=== PATIENT | female | born 1970 | race Caucasian/White ===

== ENCOUNTER 2022-02-04 16:29 | Emergency (ER) | payer MEDICAID, SELFPAY ==
[2022-02-04 16:31] VITALS: BP 135/85; PULSE 70; RESP 16; TEMP 36.6; O2SAT 100; BMI 34.3
--- NOTE | 2022-02-04 16:55 | EKG12_ITS ---
Test Reason : NUMBNESS Blood Pressure : / mmHG Vent. Rate : 072 BPM Atrial Rate : 072 BPM P-R Int : 110 ms QRS Dur : 076 ms QT Int : 402 ms P-R-T Axes : 053 042 056 degrees QTc Int : 440 ms Sinus rhythm with short RI Low voltage QRS Borderline ECG Confirmed by KATIANA CROCKER, ALLA ([id number]), pictures editor SANJEEV MEDINA ([id number]) on 02/06/2022 11:04:29 AM Referred By: PL Confirmed By:ALLA SAAB MD
--- NOTE | 2022-02-04 16:55 | CT_ITS ---
INDICATION: numbness EXAMINATION: CT BRAIN - CT Head or Brain W/O Contrast Injection TECHNIQUE: Multiple axial images were obtained of the head without intravenous contrast. A radiation dose optimization technique was used for this scan. IV Contrast dosage and agent: None. COMPARISON: None. FINDINGS: BRAIN PARENCHYMA: No intra- or extra-axial hemorrhage. No intracranial mass or mass effect. Christianson/white matter differentiation is maintained and there is no blurring of the basal ganglia. There is no hyperdense vessel. Posterior fossa structures are unremarkable. CSF SPACES: Appropriate for age. No hydrocephalus. Basal cisterns are patent. CALVARIUM, SKULL BASE, PARANASAL SINUSES AND MASTOID AIR CELLS: Clear. No discrete lytic or blastic abnormalities. ORBITS: Both globes, extraocular muscles, optic nerves and retrobulbar fat appear unremarkable. ASPECTS Score for Acute Strokes: 10 CT/Brain/Head without Contrast IMPRESSION: Negative Brain CT without contrast. Electronically Signed: Avila Morfin DO at 17:35 EDT ,
--- NOTE | 2022-02-04 16:57 | EDS_ITS ---
HPI History of Present Illness Chief Complaint: Numb/Ting Informant: patient Narrative Narrative: Patient presents with a couple symptoms. Patient has had 2 episodes of a numbness tingling paresthesias of her left arm. The first occurred on January 22 after she had had her arm sitting up high in the edge of the high chair for a while. She lowered her arm and got somewhere between 5 and 8 seconds of tingling into her hand. Completely resolved. There were no other symptoms. Last night she had an episode of tingling that was mostly in the tip of her index and long finger. That got better after a few minutes. She also has had a little bit of tingling in her dorsal forearm on the left arm. No actual numbness. No weakness in any time. She also had an episode last night of palpitations. She felt like her heart was racing. It lasted at least 5 or 6 seconds. It went away. It has not recurred. Nothing his specifically made this better or worse other than positional. She has no swelling. She thinks that the redness of her left palm might be more red than it normally is. She reports a history of palmar erythema but thinks they might be more erythematous than normal. No travel surgery immobilization personal or family history of DVT or PE. Her last trip was 7 years ago. She has no injury. [facility] Medical History Palmar erythema Palmar erythema Medical History no medical history Home Medications oxycodone-acetaminophen 5 mg-325 mg tablet 1 - 2 tab PO Q4H PRN PRN Pain ##30 05/20/17 [Rx Last Taken Unknown] sulfamethoxazole 800 mg-trimethoprim 160 mg tablet (Bactrim DS) 1 ea PO BID 7 days 05/20/17 [Rx Last Taken Unknown] Allergy/AdvReac Type Severity Reaction Status Date / Time propofol Allergy Unknown Verified 02/04/22 16:34 venom-honey bee Allergy Anaphylaxis Verified 02/04/22 16:34 [bee venom (honey bee)] Social History Smoking Status: Former smoker ROS ROS ED Constitutional Constitutional ED: Denies chills, fever(s) or sweats Eyes Eyes: Denies change in vision ENT ENT ED: Denies rhinorrhea or sore throat Cardiovascular Cardiovascular: Reports palpitations and racing heartbeat; Denies chest pain Respiratory/Chest Respiratory/Chest: Denies cough or dyspnea Gastrointestinal Gastrointestinal: Denies nausea or vomiting Genitourinary Genitourinary ED: Denies hematuria Musculoskeletal Musculoskeletal: Denies neck pain Integumentary Denies Abrasions or rash Neurologic Neurologic: Reports paresthesias; Denies headache(s) or weakness Psychiatric Psychiatric: Reports other Details: Patient is wondering if she may just be anxious causing this. But she does not have a longstanding history of anxiety Endocrine Endocrinology: Denies polydipsia or polyuria Hematologic/Lymphatic Hematologic/Lymphatic: Denies easy bleeding or easy bruising Allergic/Immunologic Allergic/Immunologic ED: Denies urticaria EXAM Physical Exam Const Vital Signs: 02/04/22 16:31 02/04/22 16:53 Temperature 97.8 F Temperature Source Temporal Pulse Rate 70 Respiratory Rate 16 Respiratory Effort Normal Non-Labored Blood Pressure 135/85 H Blood Pressure Mean 101 Pulse Ox 100 Oxygen Delivery Method Room Air Positive well nourished and well developed General Appearance ED: well developed and NAD HEENT Reports moist mucous membranes Negative for trauma or tenderness Eyes PERRL and EOMs intact bilaterally General Eye ED: Negative for scleral icterus Neck supple and no JVD Neck Narrative: No pain with range of motion General: Negative for tenderness Chest Wall inspection of chest normal Resp normal respiratory effort and clear to auscultation bilaterally Effort and Inspection: Negative for pain with movement Cardio regular rate, regular rhythm and no murmurs Rate: Negative for tachycardic GI normal to inspection, nondistended, normoactive bowel sounds and non-tender Back/Spine no CVA tenderness Extremity normal to inspection Extremity Narrative: There is no swelling or edema. No pitting. Peripheral pulses. Normal Marco Antonio's and reverse Marco Antonio's. Neuro oriented x3 Neuro Narrative: No decreased sensation. Negative Tinel's sign. Negative Phalen sign. No weakness. [employer] is normal. Psych mental status grossly normal Skin no rashes or lesions noted and no wounds Skin Narrative: Patient's palmar erythema seems equal left and right. MDM MDM MDM Narrative Medical decision making narrative: Blood work shows normal CBC including platelets hemoglobin and white count. Electrolytes are unremarkable. Renal function is normal. Troponin is negative. CT of the head is. Chest x-ray shows no acute process. Patient has had a couple episodes of paresthesias in the portions of her hand and forearm. She has never had weakness. No discoordination. She had 1 episode of some palpitations that lasted a matter of seconds. Her work-up is negative at this time. I think it is safe for her to follow-up. We discussed reasons to return that would include fevers, chest pain, continuing palpitations, return of numbness tingling weakness or visual loss. Lab Data Attestation: I reviewed the patient's lab results. Labs: Laboratory Results - last 24 hr 02/04/22 02/04/22 16:51 16:51 WBC 9.8 RBC 4.04 L Hgb 13.4 Hct 39.8 MCV 98.5 MCH 33.2 H MCHC 33.7 RDW Std Deviation 45.3 H RDW Coeff of Raghavendra 12.5 Plt Count 279 MPV 11.2 Immature Gran % (Auto) 0.300 Neut % (Auto) 62.7 Lymph % (Auto) 25.9 [place] % (Auto) 7.3 Eos % (Auto) 3.2 Baso % (Auto) 0.6 Absolute Neuts (auto) 6.1 Absolute Lymphs (auto) 2.54 Nucleated RBC % 0 Sodium 139 Potassium 3.9 Chloride 106 Carbon Dioxide 28.0 Anion Gap 5 BUN 12 Creatinine 0.69 Estim Creat Clear Calc 84.23 Est GFR (MDRD) Af Amer 115 Est GFR (MDRD) Non-Af 95 BUN/Creatinine Ratio 17.4 Glucose 106 Calcium 9.6 Troponin I High Sens 4 Radiography Diagnostic Testing: Clinical Impression(s) from Imaging Studies Brain CT 02/04/22 16:55 IMPRESSION: Negative Brain CT without contrast. Electronically Signed: Avila Morfin DO at 17:35 EDT , Chest X-Ray 02/04/22 17:15 IMPRESSION: 1. No radiographic evidence of acute cardiopulmonary disease. Electronically Signed: Avila Morfin DO at 17:35 EDT , Discharge Plan Triage Chief Complaint: Numb/Ting Other Complaint: General Illness ED Provider: Lawrence Boyd Dx/Rx/DC Orders Clinical Impression: Heart palpitations, Paresthesia of left upper extremity Instructions: ED Palpitations, ED Paraesthesias Prescriptions: No Action oxycodone-acetaminophen 1 TABLET tablet 1 - 2 tab PO Q4H PRN PRN (Reason: Pain) Qty: 30 0RF sulfamethoxazole-trimethoprim [Bactrim DS] 1 EACH tablet 1 ea PO BID 7 Days 0RF Primary Care Provider: Care Physician,No Primary Referrals: Alyce Wilson MD [STAFF PHYSICIAN] - 3-5 Days Care Physician,No Primary [Primary Care Provider] - Disposition Disposition: Home, Self Care
[2022-02-04 17:13] LABS: Absolute Lymphocyte Count 2.54 X10^3/uL (0.83-4.51); Absolute Neutrophil Count 6.1 X10^3/uL (2.0-7.7); Basophil# 0.06 X10^3/uL; Basophil% 0.6 % (0-1); Eosinophil# 0.31 X10^3/uL; Eosinophils% 3.2 % (0-5); Hematocrit 39.8 % (37-47); Hemoglobin 13.4 g/dL (12.0-15.0); Lymphocyte # 2.54 X10^3/ul (0.83-4.51); Lymphocyte % 25.9 % (19-41); Mean Corp Hgb Conc 33.7 g/dL (32-36); Mean Corpuscular Hgb 33.2 pg (27.0-32.0); Mean Corpuscular Volume 98.5 fL (81-99); Mean Platelet Vol. 11.2 fl (6.2-12.0); Monocyte# 0.72 X10^3/uL; Monocyte% 7.3 % (0-10); NRBC Flagged by Analyzer 0 % (0-5); Neutrophil # 6.14 X10^3/uL (2.7-7.7); Neutrophil % 62.7 % (47-70); Platelet Count 279 K/mm3 (150-450); RBC Distribution Width CV 12.5 % (11.6-14.6); RBC Distribution Width SD 45.3 fl (35.1-43.9); Red Blood Count 4.04 M/mm3 (4.2-5.4); White Blood Count 9.8 K/mm3 (4.4-11.0)
--- NOTE | 2022-02-04 17:15 | RAD_ITS ---
INDICATION: Palpitations EXAMINATION/TECHNIQUE: X-RAY - XR Chest 1 View COMPARISON: None. FINDINGS: LINES/DEVICES: None. LUNGS: Symmetric normal lung volumes. No airspace opacity or abnormal interstitial pattern. No nodule or mass. No pleural effusion or pneumothorax. MEDIASTINUM AND CARDIOVASCULAR STRUCTURES: Normal size and contour of the cardiomediastinal silhouette. No evidence of pulmonary vascular congestion. BONES AND SOFT TISSUES: No fracture or focal osseous lesion. RAD/Chest 1 View (Portable) IMPRESSION: 1. No radiographic evidence of acute cardiopulmonary disease. Electronically Signed: Avila Morfin DO at 17:35 EDT ,
[2022-02-04 17:34] LABS: Anion Gap 5 (5-15); BUN 12 mg/dL (7-18); BUN/Creat Ratio 17.4 RATIO (10-20); Calcium,Total 9.6 mg/dL (8.5-10.1); Chloride 106 mmol/L (98-107); Creatinine, Serum 0.69 mg/dL (0.55-1.02); EST Glomerular Filtration Rate 95 mL/min (>60); Est Glom Filt Rate - Afr Amer 115 mL/min (>60); Estimated Creatinine Clearance 84.23 ml/min; Glucose 106 mg/dL (74-106); Potassium 3.9 mmol/L (3.5-5.1); Sodium Level 139 mmol/L (136-145); Troponin-I HS 4 pg/mL (3.0-54.0)
[2022-02-04 18:21] VITALS: PULSE 65; RESP 18; O2SAT 98
== END 2022-02-04 18:22 | disposition home or self-care (01) ==
PROVIDERS: Emergency Provider Emergency Medicine; Visit Provider Emergency Medicine
DX: R00.2 Palpitations (principal); R20.2 Paresthesia of skin; Z87.891 Personal history of nicotine dependence
CPT/HCPCS: 70450; 71045; 80048; 84484; 85025; 93005; 96360; 99284; J7040; A4216